=== PATIENT | male | born 1970 | race Caucasian/White ===

== ENCOUNTER 2016-06-09 10:47 | Day surgery (SDC) | payer OTHER ==
[~2016-06-09 10:47] MED LIST: Lidocaine 2% Jelly (Uro-Jet) ONE; Lidocaine 2% w Epi 1:100,000 Inj IJ ONE; Tobramycin/Dexamethasone OPHT OINT ONE
[2016-06-09 11:12] VITALS: BMI 31.2
[2016-06-09] MEDS ORDERED: Lactated Ringer's 1,000 ML IV ONE (13:36)
[2016-06-09] MEDS ORDERED: Midazolam 2 MG/2 ML VIAL ONE (13:37)
[2016-06-09 16:05] VITALS: BP 118/65; PULSE 62; RESP 18; TEMP 97.5; O2SAT 99
--- NOTE | 2016-06-14 10:15 | OP ---
PROCEDURE DATE: 06/09/2016 KARRIEHAZEL_ EXCISION OF PTERYGIUM WITH CONJUNCTIVAL AUTOGRAFT AND LAMELLAR KERATECTOMY PREOPERATIVE DIAGNOSES: 1. PTERYGIUM, RIGHT EYE. 2. CORNEAL OPACIFICATION, RIGHT EYE. POSTOPERATIVE DIAGNOSES: 1. PTERYGIUM, RIGHT EYE. 2. CORNEAL OPACIFICATION, RIGHT EYE. OPERATIVE PROCEDURE: EXCISION OF PTERYGIUM WITH CONJUNCTIVAL AUTOGRAFT AND LAMELLAR KERATECTOMY, RIG HT EYE. ANESTHESIA TYPE: Local standby. ANESTHESIOLOGIST: COMPLICATIONS: None. PROCEDURE: The patient was brought to the operating room and was prepped and draped in the usual [place] fashion. A lid speculum was placed into the eye and topical Tetracaine was used. One percent l idocaine with epinephrine was injected subconjunctivally into the body of the pterygium. A Raimundo scissor was used to create a small opening at the neck of the pterygium at the limbus, and then a tunnel was created beneath the pterygium. A #4-0 silk suture was placed through this tunnel and tied securely. An additional #4-0 silk suture was placed through the tunnel and in a sling fashi on, was used to excise the head of the pterygium from the corneal surface. A Raimundo scissor was then used to excise the scleral extension of the pterygium for approximately 3 -4 millimeters. Tenon's membrane was removed beneath the dissected bed and light cautery was used fo r hemostasis. A #57 [place] blade was then used to perform a lamellar keratectomy removing all of the opacified corneal tissue. A humble erik was used to [place] this surface. One percent lidocaine wa s used subconjunctivally in the superior aspect of the eye, and a conjunctival autograft was harveste d and rotated in an anatomical fashion over the recipient bed. The graft was noted to be of excellen t size for the bed, and #8-0 Vicryl sutures were used in an interrupted fashion to suture the graft i n place. At the limbus both above and below, the graft was tacked down to episclera. At the end of the case a collagen shield soaked in TobraDex was placed onto the cornea, and TobraDex ointment was placed into the eye. A patch and shield were placed over the eye, and the patient was t destiny from the operating room in excellent condition. Emeka Bansal MD cc: [id number] TT: 06/14/2016 10:14:54 mn
== END 2016-06-09 15:15 | disposition home or self-care (01) ==
LOC: C.SDS 10:47
PROVIDERS: ATTEND Ophthalmology
DX: H11.001 Unspecified pterygium of right eye (principal); H17.9 Unspecified corneal scar and opacity
CPT/HCPCS: 65426; 88304; J2250; J7120